=== PATIENT | female | born 1990 | race Caucasian/White ===

== ENCOUNTER 2016-07-10 06:11 | Emergency (ER) | payer BC ==
--- NOTE | 2016-07-10 06:21 | Emergency Department Record ---
History of Present Illness - General Chief complaint: Pain Stated complaint: RIB, CHEST, BACK PAIN Time Seen by Provider: 07/10/16 06:21 Source: Patient Mode of Arrival: Ambulatory Limitations: No limitations - History of Present Illness Initial comments: The patient is here due to the acute onset of epigastric AP about 15 minutes ago that now is mostly gone. The pain is sharp and stabbing and does radiate to the back and minimally up into the chest. She denies any L sided CP, SOB, or vomiting but did have some nausea. The patient has no hx of similar issues and no hx of abdominal surgeries. MD Complaint: Abdominal Pain Onset/Timin -: Minutes(s) Location: Other History of Same: No Severity scale (1-10): 5 Quality: Burning, Stabbing Consistency: Constant Improves with: Nothing Worsens with: Other - Related Data Home Medications Medication Instructions Recorded Confirmed Last Taken No Home Med [NO HOME MEDS] 07/10/16 07/10/16 Unknown Allergies Allergy/AdvReac Type Severity Reaction Status Date / Time No Known Drug Allergies Allergy Verified 07/10/16 06:12 Travel Screening - Travel/Exposure Within Last 30 Days Have you traveled within the last 30 days?: No - Travel Symptoms Symptom Screening: None Review of Systems Constitutional: Denies: Chills, Fever Eyes: Denies: Eye discharge ENT: Denies: Congestion, Throat pain Respiratory: Denies: Cough, Dyspnea Past Medical History - SOCIAL HISTORY Smoking Status: Former smoker Alcohol Use: None - RESPIRATORY Hx Respiratory Disorders: No - CARDIOVASCULAR Hx Cardio Disorders: No - NEURO Hx Neuro Disorders: No - GI Hx GI Disorders: No - Hx Genitourinary Disorders: No - ENDOCRINE Hx Endocrine Disorders: No - MUSCULOSKELETAL Hx Musculoskeletal Disorders: No - PSYCH Hx Psych Problems: No - HEMATOLOGY/ONCOLOGY Hx Hematology/Oncology Disorders: No Family Medical History Any Significant Family History?: No Family Hx Comment (NOT TO BE USED IN PLACE OF ITEMS BELOW): denies Physical Exam - General General Appearance: Alert, Oriented x3, Cooperative, No acute distress - Head Head exam: Atraumatic, Normocephalic, Normal inspection - Eye Eye exam: Normal appearance, PERRL - ENT Throat exam: Normal inspection. negative: Tonsillar erythema, Tonsillar exudate - Neck Neck exam: Normal inspection, Full ROM. negative: Tenderness - Respiratory Respiratory exam: Normal lung sounds bilaterally. negative: Respiratory distress - Cardiovascular Cardiovascular Exam: Regular rate, Normal rhythm, Normal heart sounds - GI/Abdominal GI/Abdominal exam: Soft, Normal bowel sounds, Tenderness (There is mild epigastric tenderness that EXACTLY reproduces the AP.). negative: Distended, Guarding, Rigid - Extremities Extremities exam: Normal inspection, Full ROM, Normal capillary refill. negative: Tenderness Course Vital Signs 07/10/16 06:15 Temperature 97.7 F Pulse Rate 92 H Respiratory 18 Rate Blood Pressure 120/72 Pulse Ox 97 - Reevaluation(s) Reevaluation #1: The patient is doing much better at this time. Her pain is pretty much resolved. She has no abdominal tenderness on exam. The patient will be turned over to Dr. Cheek at this time due to shift change. 07/10/16 07:08 Medical Decision Making - Lab Data Result diagrams: 07/10/16 06:42 07/10/16 06:42 Disposition Forms: Patient Portal Access
[2016-07-10] MEDS ORDERED: ONDANSETRON HCL IV 4 MG/2 ML VIAL IV ONE (06:24)
[2016-07-10] MEDS ORDERED: 0.9 % SODIUM CHLORIDE 1,000 ML BAG IV ONE (06:24)
[2016-07-10] MEDS ORDERED: MAGNESIUM HYDROXIDE/AL HYDROX 30 ML, LIDOCAINE VISC 2% 200 MG PO ONE ×2 (06:25)
[2016-07-10 07:03] LABS: BASO % 0.4 % (0-6); EOS % 1.2 % (0-6); GRAN % 49.1 % (47-80); HEMATOCRIT 42.3 % (35.0-47.0); HEMOGLOBIN 13.9 gm/dl (11.6-16.0); MEAN CELL VOLUME 90.6 fl (81-97); MEAN CORPUSCULAR HEMOGLOBIN 29.8 pg (27-33); MEAN CORPUSCULAR HGB CONC 32.9 g/dl (32-36); MEAN PLATELET VOLUME 11.1 fl (7.4-10.4); MONO % 12.3 % (0-9); PLATELET COUNT 308 K/uL (130-400); RED BLOOD COUNT 4.67 M/uL (3.80-5.40); RED CELL DISTRIBUTION WIDTH 13.4 % (11.5-14.5); URINE APPEARANCE CLEAR; URINE BILIRUBIN NEGATIVE (NEGATIVE); URINE BLOOD NEGATIVE (NEGATIVE); URINE COLOR YELLOW; URINE GLUCOSE (UA) NEGATIVE (NEGATIVE); URINE KETONE NEGATIVE (NEGATIVE); URINE LEUKOCYTE ESTERASE SMALL (NEGATIVE); URINE NITRITE NEGATIVE (NEGATIVE); URINE PROTEIN NEGATIVE (NEGATIVE); URINE UROBILINOGEN 0.2 E.U./dL (0.20 - 1.00); WHITE BLOOD COUNT W/O DIFF 5.2 K/uL (4.2-12.2)
[2016-07-10 07:09] LABS: HCG,QUALITATIVE URINE NEGATIVE (NEGATIVE); URINE BACTERIA FEW; URINE EPITHELIAL CELLS 0 - 2 (FEW); URINE RBC NONE SEEN (NONE SEEN); URINE WBC 21 - 35 (0-2/hpf)
--- NOTE | 2016-07-10 07:14 | Emergency Department Record ---
History of Present Illness - General Chief Complaint: Pain Stated Complaint: RIB, CHEST, BACK PAIN Time Seen by Provider: 07/10/16 06:21 Source: Patient Mode of Arrival: Ambulatory Limitations: No limitations - History of Present Illness Initial Comments: 26 yo female presents with upper abdominal pain that occurred this morning The case was signed out at turn over by Dr Gastelum. Labs and US are pending at this time. MD Complaint: Abdominal pain Onset/Timin -: Minutes(s) Severity scale (1-10): 5 Consistency: Constant - Related Data LMP (females 10-50): 3 weeks ago Patient : No Previous Rx's Medication Instructions Recorded Cephalexin [Keflex] 500 mg PO TID #21 cap 07/10/16 Ondansetron [Zofran Odt] 4 mg PO Q8H #15 tab.rapdis 07/10/16 Pantoprazole Sodium [Protonix] 20 mg PO DAILY #30 tablet. 07/10/16 Allergies Allergy/AdvReac Type Severity Reaction Status Date / Time No Known Drug Allergies Allergy Verified 07/10/16 06:12 Travel Screening - Travel/Exposure Within Last 30 Days Have you traveled within the last 30 days?: No - Travel Symptoms Symptom Screening: None Review of Systems Constitutional: Denies: Chills, Fever Eyes: Denies: Eye discharge ENT: Denies: Congestion, Throat pain Respiratory: Denies: Cough, Dyspnea Past Medical History - SOCIAL HISTORY Smoking Status: Former smoker Alcohol Use: None - RESPIRATORY Hx Respiratory Disorders: No - CARDIOVASCULAR Hx Cardio Disorders: No - NEURO Hx Neuro Disorders: No - GI Hx GI Disorders: No - Hx Genitourinary Disorders: No - ENDOCRINE Hx Endocrine Disorders: No - MUSCULOSKELETAL Hx Musculoskeletal Disorders: No - PSYCH Hx Psych Problems: No - HEMATOLOGY/ONCOLOGY Hx Hematology/Oncology Disorders: No Family Medical History Any Significant Family History?: No Family Hx Comment (NOT TO BE USED IN PLACE OF ITEMS BELOW): denies Physical Exam - General Limitations: No limitations Course Vital Signs 07/10/16 06:15 Temperature 97.7 F Pulse Rate 92 H Respiratory 18 Rate Blood Pressure 120/72 Pulse Ox 97 - Reevaluation(s) Reevaluation #1: The case was turned over by Dr Gastelum at morning sing out The patient's CBC was reviewed. No acute changes The patient is currently in US and will be seen on return. 07/10/16 07:11 The remaining labs were reviewed. No acute changes of the CMP or Lipase except minimal changes of AST to 39 Negative HCG Trace LE and few WBC's on UA 07/10/16 07:31 Reevaluation #2: The patient returned from US The preliminary US demonstrated no gall stones. Questionable sludge. The patient reports she is very comfortable We discussed possible GB We discussed outpatient referral for PCP and Specialty clinic for surgery DC on Keflex for UTI, Zofran as needed for nausea, and Protonix 07/10/16 08:05 Reevaluation #3: The patient was doing very well at time of DC She was referred to [facility] and Specialty Clinic 07/10/16 08:45 Medical Decision Making - Lab Data Result diagrams: 07/10/16 06:42 07/10/16 06:42 Lab Results 07/10/16 07/10/16 Range/Units 06:42 06:42 WBC 5.2 (4.2-12.2) K/uL RBC 4.67 (3.80-5.40) M/uL Hgb 13.9 (11.6-16.0) gm/dl Hct 42.3 (35.0-47.0) % MCV 90.6 (81-97) fl MCH 29.8 (27-33) pg MCHC 32.9 (32-36) g/dl RDW 13.4 (11.5-14.5) % Plt Count 308 (130-400) K/uL MPV 11.1 H (7.4-10.4) fl Gran % 49.1 (47-80) % Lymphocytes % 37.0 (16-45) % Monocytes % 12.3 H (0-9) % Eosinophils % 1.2 (0-6) % Basophils % 0.4 (0-6) % Urine Color Yellow Urine Appearance Clear Urine pH 6.0 (5.0-8.0) Ur Specific Joaquin >= 1.030 (1.002-1.030) Urine Protein Negative (NEGATIVE) Urine Glucose (UA) Negative (NEGATIVE) Urine Ketones Negative (NEGATIVE) Urine Blood Negative (NEGATIVE) Urine Nitrite Negative (NEGATIVE) Urine Bilirubin Negative (NEGATIVE) Urine Urobilinogen 0.2 (0.20 - 1.00) E.U./dL Ur Leukocyte Esterase Small H (NEGATIVE) Urine RBC None seen (NONE SEEN) Urine WBC 21 - 35 (0-2/hpf) Ur Epithelial Cells 0 - 2 (FEW) Urine Bacteria Few Urine HCG, Qual Negative (NEGATIVE) Disposition Disposition: Discharge Clinical Impression: Abdominal pain Qualifiers: Abdominal location: unspecified location Qualified Code(s): R10.9 - Unspecified abdominal pain Urinary tract infection Qualifiers: Urinary tract infection type: site unspecified Hematuria presence: without hematuria Qualified Code(s): N39.0 - Urinary tract infection, site not specified Disposition: Home, Self-Care Condition: (1) Good Instructions: Urinary Tract Infection in Women (ED), Epigastric Pain (ED) Additional Instructions: Return if you have any return of pain, fever, vomiting or any new concerns Call for a new family doctor today You have been referred for a further evaluation of your gall bladder Prescriptions: Cephalexin [Keflex] 500 mg PO TID #21 cap Ondansetron [Zofran Odt] 4 mg PO Q8H #15 tab.rapdis Pantoprazole Sodium [Protonix] 20 mg PO DAILY #30 tablet.dr Referrals: EILEEN OKEEFE M.D. [MEDICAL DOCTOR] - Patricio Chaparro [DOCTOR OF OSTEOPATH] - [facility] [Provider Group] Forms: Patient Portal Access Time of Disposition: 08:16
[2016-07-10 07:15] LABS: ALBUMIN 4.6 gm/dL (3.5-5.0); ALKALINE PHOSPHATASE 92 U/L (38-126); ALT/SGPT 51 U/L (9-52); ANION GAP 10.7 (7-16); AST/SGOT 39 U/L (14-36); BILIRUBIN,TOTAL 0.51 mg/dL (0.2-1.3); BLOOD UREA NITROGEN 13 mg/dL (7-17); CARBON DIOXIDE 25.3 mmol/L (22-30); CREATININE 0.7 mg/dL (0.52-1.04); EST GLOMERULAR FILTRATION RATE > 60 ml/min; GLUCOSE,RANDOM 89 mg/dL (70-110); LIPASE 67 U/L (23-300); TOTAL PROTEIN 7.5 gm/dL (6.3-8.2)
== END 2016-07-10 08:59 | disposition home or self-care (01) ==
LOC: ER 06:11
DX: N39.0 Urinary tract infection, site not specified (principal); R10.13 Epigastric pain
CPT/HCPCS: 99284 ×2; 96374; 96361; 83690; 85025; 80076; 80048; 81001; 81025; 76700; J2405; J7030

== ENCOUNTER 2016-07-23 10:20 | Day surgery (SDC) | payer BC ==
[2016-07-23] MEDS ORDERED: LIDOCAINE 2% MDV (20MG/ML) 20ML VIAL IV ONE (14:00)
[2016-07-23] MEDS ORDERED: PROPOFOL 10 MG/ML VIAL IV ONE (14:00)
[2016-07-23] MEDS ORDERED: FENTANYL PF 100MCG/2ML VIAL IV ONE (14:00)
[2016-07-23] MEDS ORDERED: ROCURONIUM BROMIDE 50MG/5ML VIAL IV ONE (14:00)
[2016-07-23] MEDS ORDERED: MIDAZOLAM HCL 2MG/2ML VIAL IV ONE (14:00)
[2016-07-23] MEDS ORDERED: GLYCOPYRROLATE 0.2 MG/ML ML IV ONE (14:00)
[2016-07-23] MEDS ORDERED: ONDANSETRON HCL IV 4 MG/2 ML VIAL IVP ONE (14:00)
[2016-07-23] MEDS ORDERED: SUCCINYLCHOLINE 20 MG/ML 10ML IVP ONE (14:00)
[2016-07-23] MEDS ORDERED: KETOROLAC 30 MG/ML VIAL IVP ONE (14:00)
[2016-07-23] MEDS ORDERED: DEXAMETHASONE 4 MG/ML 1ML VIAL IVP ONE (14:00)
[2016-07-23] MEDS ORDERED: DESFLURANE 240 ML BTL INH ONE (14:00)
[2016-07-23] MEDS ORDERED: HYDROMORPHONE HCL 2 MG/ML VIAL IV ONE (15:33)
[2016-07-23] MEDS ORDERED: BUPIVACAINE 0.25% W/EPI MPF 30ML VIAL IVP ONE (15:33)
[2016-07-23] MEDS ORDERED: PROMETHAZINE HCL 25 MG/ML VIAL IVP ONE (15:33)
[2016-07-23] MEDS ORDERED: HYDROCODONE/APAP 5/325MG TABLET PO ONE (15:33)
--- NOTE | 2016-07-24 16:39 | Operative Note ---
DATE OF SURGERY: 07/23/2016 Surgeon: Patricio Chaparro DO PREOPERATIVE DIAGNOSIS: Gallbladder sludge, recurrent biliary colic. POSTOPERATIVE DIAGNOSIS: Gallbladder sludge, recurrent biliary colic. OPERATION: Laparoscopic cholecystectomy. Indication: The patient is a 26-year-old female who is having ongoing right subcostal postprandial pain. Imaging studies did reveal gallbladder sludge. We did discuss cholecystectomy versus observation. She decided on surgical intervention. Risks include bleeding, infection, ductal injury, possible conversion to open, postoperative bile leak. She understood this fully. Consent was signed and questions answered. PROCEDURE: She was taken to the operating room and placed in a supine position. The abdomen was prepped and draped in the usual fashion. Adequate timeout was performed. At this time, the supraumbilical region was anesthetized with a total of 2 mL of 0.25% Sensorcaine with epinephrine. A 2 cm supraumbilical incision was made. This was carried down blunty to the anterior rectus fascia. This was incised. Dann clamps were placed on the fascial edges and brought up into the wound. Stay sutures of 0 Vicryl were placed. Posterior rectus sheath was identified and incised. The peritoneal cavity was entered bluntly. At this time a 10 mm blunt Cecilio port was placed. Adequate pneumoperitoneum was established. Under direct visualization, additional 5 mm epigastric and two 5 mm right subcostal ports were placed. The patient was rotated into steep reverse Trendelenburg, rotation to left. Gallbladder was identified subhepatic space. This was lifted in cephalad and lateral direction over the angle of Calot. The hepatocystic triangle was thoroughly dissected out. There was no aberrant anatomy, no posterior ductal structures. Cystic duct and cystic artery were clearly identified. The distal half of the gallbladder was released from the liver plate to aid in exposure of retrocystic space. Each one was doubly clipped and cut in a standard fashion. Gallbladder was then taken off the liver bed with the Hemant harmonic. This was extracted infraumbilically. Right upper quadrant rechecked and noted to be hemostatic. No bleeding. No bile leak. No bowel injury noted. The patient was leveled out. The pneumoperitoneum was released. All ports were removed. The fascia was closed with 0 Vicryl in a [id number] fashion. The skin at all ports was closed with 4-0 Vicryl. She was taken to the recovery room in satisfactory condition. FINDINGS AT THE TIME OF SURGERY: Chronic cholecystitis. MTDD
== END 2016-07-23 13:55 | disposition home or self-care (01) ==
LOC: SUR 10:20
PROVIDERS: ATTEND Surgery
DX: K81.1 Chronic cholecystitis (principal)
CPT/HCPCS: 81025; 47562; 00790; J1885; J2405; J3010; J1170; J0330; J2550

== ENCOUNTER 2016-07-28 09:12 | Emergency (ER) | payer BC ==
--- NOTE | 2016-07-28 09:45 | Emergency Department Record ---
History of Present Illness - General Chief complaint: ENT Stated complaint: POST SURGICAL FEVER Time Seen by Provider: 07/28/16 09:37 Source: Patient Mode of Arrival: Ambulatory Limitations: No limitations - History of Present Illness Initial comments: 26 yo female presents with a sore throat. The sore throat started yesterday. She has pain with swallowing. She had her gall bladder removed 5 days ago. She reports she is steadily improving. Her pain is well controlled. She is eating and drinking. No vomiting. No diarrhea. The incisional pain is continuing to improve. She did have a fever yesterday. No cough. No dysuria. Her only symptom is the sore throat and a tender right sided lymph node. No changes in her voice. No pain in the throat after surgery immediately. MD complaint: Sore throat Onset/Timin -: Hour(s) Location: R ear, Throat Severity: Moderate Severity scale (1-10): 6 Quality: Other Consistency: Constant Improves with: None Worsens with: Swallowing Associated Symptoms: Discharge from ear, Sore throat - Related Data Home Medications Medication Instructions Recorded Confirmed Last Taken Hydrocodone/Acetaminophen [[place] 1 tab PO Q6HR 07/28/16 07/28/16 07/27/16 5-325 Tablet] Previous Rx's Medication Instructions Recorded Ondansetron [Zofran Odt] 4 mg PO Q8H #15 tab.rapdis 07/10/16 Amoxicillin/Potassium Clav 1 tab PO BID #14 tab 07/28/16 [Augmentin 875-125 Tablet] Allergies Allergy/AdvReac Type Severity Reaction Status Date / Time No Known Drug Allergies Allergy Verified 07/10/16 06:12 Travel Screening - Travel/Exposure Within Last 30 Days Have you traveled within the last 30 days?: No - Travel/Exposure Within Last Year Have you traveled outside the [place] in the last year?: No - Additonal Travel Details Have you been exposed to anyone with a communicable illness?: No - Travel Symptoms Symptom Screening: None Review of Systems Constitutional: Reports: Fever. Denies: Chills, Malaise, Weakness Eyes: Denies: Eye discharge ENT: Reports: Throat pain. Denies: Dental pain, Ear pain, Epistaxis Respiratory: Denies: Cough, Dyspnea, Hemoptysis, Stridor, Wheezes Cardiovascular: Denies: Chest pain, Palpitations, Syncope Endocrine: Denies: Fatigue, Polydipsia, Polyuria Gastrointestinal: Denies: Abdominal pain, Diarrhea, Nausea, Vomiting Genitourinary: Denies: Dysuria, Urgency Musculoskeletal: Denies: Arthralgia, Back pain, Myalgia, Neck pain Skin: Denies: Bruising, Change in color, Rash Neurological: Denies: Headache, Numbness, Weakness Psychiatric: Denies: Anxiety Hematological/Lymphatic: Reports: Swollen glands. Denies: Blood Clots, Easy bleeding, Easy bruising Past Medical History - SOCIAL HISTORY Smoking Status: Former smoker - RESPIRATORY Hx Respiratory Disorders: No - CARDIOVASCULAR Hx Cardio Disorders: No - NEURO Hx Neuro Disorders: No Hx Headaches: Yes Hx of Migraines: (SINCE AGE 15 WEEKLY RELIEF WITH SLEEP) - GI Hx GI Disorders: No Hx Abdominal Pain: Yes (R/T GALLBLADDER) Hx Nausea/Vomiting: Yes - Hx Genitourinary Disorders: No Hx UTI: Yes (FINISHED ABX 07/16) - ENDOCRINE Hx Endocrine Disorders: No - MUSCULOSKELETAL Hx Musculoskeletal Disorders: No - PSYCH Hx Psych Problems: No - HEMATOLOGY/ONCOLOGY Hx Hematology/Oncology Disorders: No Family Medical History Any Significant Family History?: Yes Family Hx Comment (NOT TO BE USED IN PLACE OF ITEMS BELOW): denies Hx Cancer: Grandparents Hx Dementia: Grandparents Physical Exam - General General Appearance: Alert, Oriented x3, Cooperative, No acute distress Limitations: No limitations - Head Head exam: Normal inspection - Eye Eye exam: Normal appearance, PERRL. negative: Conjunctival injection, Periorbital swelling - ENT ENT exam: Mucous membranes moist, Normal external ear exam, TM's normal bilaterally. negative: Normal exam, Mucous membranes dry, Normal orophraynx Ear exam: Normal external inspection. negative: External canal tenderness Nasal Exam: Normal inspection. negative: Discharge, Sinus tenderness Mouth exam: Normal external inspection, Tongue normal Teeth exam: Normal inspection. negative: Dental caries Throat exam: Tonsillar erythema, Tonsillomegaly. negative: Normal inspection, Tonsillar exudate, R peritonsillar mass, L peritonsillar mass - Neck Neck exam: Normal inspection, Lymphadenopathy (right sided, mild anterior cervical adenopthay) - Respiratory Respiratory exam: Normal lung sounds bilaterally. negative: Respiratory distress, Rhonchi, Stridor, Wheezes - Cardiovascular Cardiovascular Exam: Regular rate, Normal rhythm, Normal heart sounds - GI/Abdominal GI/Abdominal exam: Soft, Other (Incisions are healing well, no redness, very mild tenderness on examination that seems appropriate for day 5 post op). negative: Distended, Guarding, Rigid - Rectal Rectal exam: Deferred - exam: Deferred - Extremities Extremities exam: Normal inspection, Full ROM, Normal capillary refill. negative: Tenderness - Back Back exam: Reports: Normal inspection, Full ROM. Denies: Muscle spasm, Rash noted, Tenderness - Neurological Neurological exam: Alert, Normal gait, Oriented X3, Reflexes normal - Psychiatric Psychiatric exam: Normal affect, Normal mood - Skin Skin exam: Dry, Intact, Normal color, Warm Course Vital Signs 07/28/16 09:23 Temperature 98.5 F Pulse Rate 90 Respiratory 18 Rate Blood Pressure 133/90 Pulse Ox 97 - Reevaluation(s) Reevaluation #1: strep screen is negative DC on Augmentin 07/28/16 10:28 Reevaluation #2: Post operative the patient seems to be doing well and on a normal recovery track. The current symptoms are isolated to the throat only. No sign of post op complications. 07/28/16 10:59 Disposition Disposition: Discharge Clinical Impression: Tonsillitis Disposition: Home, Self-Care Condition: (1) Good Instructions: Tonsillitis (ED) Additional Instructions: Return to the ED if you have fever, vomiting, abdominal pain or any new concerns Stay well hydrated Take the Augmentin twice daily Prescriptions: Amoxicillin/Potassium Clav [Augmentin 875-125 Tablet] 1 tab PO BID #14 tab Forms: Patient Portal Access Time of Disposition: 10:28
[2016-07-28] MEDS ORDERED: AMOXICILLIN/POTASSIUM CLAV 875MG/125MG TABLET PO ONE (09:47)
== END 2016-07-28 10:43 | disposition home or self-care (01) ==
LOC: ER 09:12
DX: J03.90 Acute tonsillitis, unspecified (principal); Z87.891 Personal history of nicotine dependence; R50.81 Fever presenting with conditions classified elsewhere; Z90.49 Acquired absence of other specified parts of digestive tract
CPT/HCPCS: 87880; 99283